=== PATIENT | male | born 1980 | race Hispanic/Latino ===

== ENCOUNTER 2023-07-31 11:38 | Emergency (ER) | payer SELFPAY ==
--- NOTE | 2023-07-31 11:55 | ED_ITS ---
HPI - Skin/Abscess/Foreign Bdy General Stated complaint: hand lac Time Seen by Provider: 07/31/23 11:45 Focused HPI: This is a 43-year-old male that presents to the emergency department for laceration to the left 2nd finger sustained just prior to arrival. Reports he accidentally cut it while trying to make his lunch with a knife. Reports bleeding and pain to the area. He is not up-to-date on his tetanus vaccination. Denies decreased range of motion or numbness. GENERAL: Well-appearing, well-nourished, and in no acute distress. HEAD: Normocephalic, atraumatic. CHEST: Clear to auscultation. ?No respiratory distress. HEART: Regular rate and rhythm.? EXTREMITIES: Left 2nd finger with flap laceration to the distal phalanx NEURO: ?Alert and oriented x3. Patient screened in triage and initial orders placed.? ?Additional care and disposition to be based upon?diagnostic testing and treatment. Related Data Allergies Allergy/AdvReac Type Severity Reaction Status Date / Time No Known Allergies Allergy Verified 07/31/23 12:01 Review of Systems Review of Systems: CONSTITUTIONAL: Denies fever SKIN: Reports laceration All systems reviewed & are unremarkable except as noted in HPI and below PMFSH Past Medical History Medical History (Updated 07/31/23 @ 19:01 by Hoa Cosme PA-C) History of diabetes mellitus History of hyperlipidemia Social History Social History (Updated 07/31/23 @ 19:01 by Hoa Cosme PA-C) Substance use: never Exam Narrative: GENERAL: Well-appearing, well-nourished, and in no acute distress. HEAD: Normocephalic, atraumatic. EYES: EOMI. EXTREMITIES: Normal range of motion. No edema. Left 2nd finger with flap laceration to the distal phalanx SKIN: Warm, dry, no rash. NEURO: No focal deficits. Alert and oriented x3. PSYCH: Normal mood and affect Course Course Emergency Course: Patient eloped after being seen by myself and before any further evaluation and management of his laceration Vital Signs Vital signs: Vital Signs Temperature 97.6 F 07/31/23 11:59 Pulse Rate 60 07/31/23 11:59 Respiratory Rate 18 07/31/23 11:59 Blood Pressure 136/102 H 07/31/23 11:59 Pulse Oximetry 100 07/31/23 11:59 Oxygen Delivery Room Air 07/31/23 11:59 Temperature 97.6 F 07/31/23 11:59 Pulse Rate 60 07/31/23 11:59 Respiratory Rate 18 07/31/23 11:59 Blood Pressure 136/102 H 07/31/23 11:59 Pulse Oximetry 100 07/31/23 11:59 Oxygen Delivery Room Air 07/31/23 11:59 Critical Care Time Critical Care Time Critical Care Time: No Discharge Plan Discharge Clinical Impression: Laceration Patient Disposition: Elopement After Seen by Prov Condition: Stable Follow-up/Referrals: PHYSICIAN,CAR VARNISHER [Non-Staff] -
[2023-07-31 11:59] VITALS: BP 136/102; PULSE 60; RESP 18; TEMP 36.4; O2SAT 100
--- NOTE | 2023-07-31 13:47 | PC.NURSE ---
Pt eloped before procedure. Pt A&Ox4
== END 2023-07-31 14:31 | disposition left against medical advice (07) ==
LOC: ANHED 14:07
PROVIDERS: Emergency Provider Physician Assistant
DX: S61.211A Laceration without foreign body of left index finger without damage to nail, initial encounter (principal); E11.9 Type 2 diabetes mellitus without complications; E78.5 Hyperlipidemia, unspecified; W26.0XXA Contact with knife, initial encounter; Y93.G1 Activity, food preparation and clean up
CPT/HCPCS: 99281